=== PATIENT | female | born 1955 | race Two or more races ===

== ENCOUNTER 2016-10-18 10:40 | Outpatient (CLI) | payer MEDICARE, MEDICAID | END 2016-10-18 23:59 | disposition home or self-care (01) | LOC: WOU 10:40 | PROVIDERS: ATTEND Podiatrist Foot & Ankle Surgery | DX: I87.2 Venous insufficiency (chronic) (peripheral) (principal); L97.813 Non-pressure chronic ulcer of other part of right lower leg with necrosis of muscle; Z83.3 Family history of diabetes mellitus; Z82.49 Family history of ischemic heart disease and other diseases of the circulatory system; Z82.61 Family history of arthritis; I10 Essential (primary) hypertension; E78.5 Hyperlipidemia, unspecified; G62.9 Polyneuropathy, unspecified; Z79.899 Other long term (current) drug therapy | CPT/HCPCS: 11043; A6402 ==

== ENCOUNTER 2016-11-01 05:33 | Day surgery (SDC) | payer MEDICARE, MEDICAID ==
[2016-11-01] MEDS ORDERED: IV NS 0.9% 1,000 ML ONE (05:59)
[2016-11-01] MEDS ORDERED: CEFAZOLIN SODIUM/DEXTROSE,ISO 100 ML IV ONE (06:00)
[2016-11-01] MEDS ORDERED: IV SET PRIMARY 1 EA INFUS.SET MC ONE (06:00)
[2016-11-01] MEDS ORDERED: SECONDARY IV SET 1 EA INFUS.SET MC ONE (06:00)
[2016-11-01] MEDS ORDERED: NEEDLELESS EST SET LARGE BORE 1 EA INFUS.SET MC ONE (06:00)
[2016-11-01] MEDS ORDERED: BUPIVACAINE MPF 0.5% W/EPI INJ 30 ML VIAL ONE (07:12)
[2016-11-01] MEDS ORDERED: KETOROLAC TROMETHAMINE INJ 30 MG/ML VIAL ONE (08:45)
== END 2016-11-01 09:40 | disposition home or self-care (01) ==
LOC: DS 05:33
PROVIDERS: ATTEND Podiatrist Foot & Ankle Surgery
DX: I96 Gangrene, not elsewhere classified (principal); L97.819 Non-pressure chronic ulcer of other part of right lower leg with unspecified severity; E66.3 Overweight; I10 Essential (primary) hypertension
CPT/HCPCS: 87070-TC; A6402; J0690; J1100; J1885; J2001; J2405; J2704; J3490; J7030